=== PATIENT | female | born 1995 | race American Indian/Alaskan Native ===

== ENCOUNTER 2021-06-04 11:02 | Inpatient (IN) | payer OTHER ==
[2021-06-04] MEDS ORDERED: miSOPROStol 25 MCG TAB VG ONE ×2 (11:24→15:30)
[2021-06-04] MEDS ORDERED: ePHEDrine SULFATE 50 MG/1 ML INJ IV PRN (11:24)
[2021-06-04 13:42] LABS: Hematocrit 34.8 % (30.3-42.9); Hemoglobin 11.9 gm/dl (10.1-14.3); Mean Corpuscular HGB Conc 34 % (30-34); Mean Corpuscular Volume 87 fl (79-97); Platelet Count 280 K/mm3 (140-440); Red Blood Count 4.02 M/mm3 (3.65-5.03)
[2021-06-04 14:04] LABS: Alanine Aminotransferase 16 units/L (7-56); Uric Acid 3.3 mg/dL (3.5-7.6)
[2021-06-04] MEDS ORDERED: miSOPROStol 200 MCG TAB PR PRN (15:00)
[2021-06-04] MEDS ORDERED: TERBUTALINE 1 MG/1 ML INJ SUB-Q PRN (15:00)
[2021-06-04] MEDS ORDERED: OXYTOCIN 10 UNIT/1 ML INJ IM PRN (15:00)
[2021-06-04] MEDS ORDERED: OXYTOCIN DRIP 30 UNITS/500 ML BAG IV SCH (15:00)
[2021-06-04] MEDS: LACTATED RINGERS 1,000 ML IV SCH ×2 (15:10→22:41)
[2021-06-04] MEDS: miSOPROStol 25 MCG TAB PO PRN ×2 (15:14→21:55)
[2021-06-04] MEDS ORDERED: CARBOPROST TROMETHAMINE 250 MCG/1 ML INJ IM PRN (15:30)
[2021-06-04] MEDS ORDERED: METHYLERGONOVINE MALEATE 0.2 MG/ML VIAL IM PRN (15:30)
[2021-06-04] MEDS ORDERED: fentaNYL 100 MCG/2 ML INJ IV PRN (15:30)
[2021-06-04] MEDS ORDERED: ONDANSETRON 4 MG/2 ML INJ IV PRN (15:30)
[2021-06-04] MEDS ORDERED: LIDOCAINE (2%) 20 MG/1 ML VIAL 20 ML MDV INFILTRATI ONE (15:30)
[2021-06-04] MEDS ORDERED: ACETAMINOPHEN 325 MG TAB PO PRN (15:30)
[2021-06-04] MEDS ORDERED: LOPERAMIDE 2 MG CAP PO PRN (15:30)
[2021-06-04] MEDS ORDERED: BUTORPHANOL 2 MG/1 ML INJ IV PRN (15:30)
[2021-06-04] MEDS ORDERED: NALOXONE 0.4 MG/1 ML INJ IV PRN (15:30)
--- NOTE | 2021-06-04 20:03 | History and Physical Report ---
History of Present Illness Date of examination: 06/04/21 Date of admission: 06/04/21 11:04 Chief complaint: elevated blood pressure, sent from the office History of present illness: Pt is a 25 year old -Greek female primigravida SUMAN 06/16/21 at 38w2d who presents with BPs 140/100 in office today. She denies headache, blurry vision, RUQ pain or scotomata. She has had care at [facility] since 18 wks complicated by HSV-1 positive status. She is GBS negative. Past History Past Medical History: no pertinent history Past Surgical History: no surgical history Family/Genetic History: none Social history: no significant social history - Obstetrical History Expected Date of Delivery: 06/16/21 Actual Gestation: 38 Week(s) 2 Day(s) : 1 Medications and Allergies Allergies Allergy/AdvReac Type Severity Reaction Status Date / Time Penicillins Allergy Shortness Verified 06/04/21 14:03 of Breath Home Medications Medication Instructions Recorded Confirmed Last Taken Type No Known Home Medications [No 06/04/21 06/04/21 Unknown History Reported Home Medications] Active Meds: Active Medications Acetaminophen (Acetaminophen 325 Mg Tab) 650 mg PO Q4H PRN PRN Reason: Pain, Mild (1-3) Butorphanol Tartrate (Butorphanol 2 Mg/1 Ml Inj) 2 mg IV Q2H PRN PRN Reason: Pain , Severe (7-10) Carboprost Tromethamine (Carboprost Tromethamine 250 Mcg/1 Ml Inj) 250 mcg IM ONCE PRN PRN Reason: Uterine Bleeding Ephedrine Sulfate (Ephedrine Sulfate 50 Mg/1 Ml Inj) 10 mg IV Q2M PRN PRN Reason: Hypotension Fentanyl (Fentanyl 100 Mcg/2 Ml Inj) 100 mcg IV Q2H PRN PRN Reason: Pain,Severe (7-10) LABOR PAIN Oxytocin/Sodium Chloride (Pitocin/Ns 30 Unit/500ml) 30 units in 500 mls @ 2 mls/hr IV TITR CARMELO; Protocol Lactated Ringer's (Lactated Ringers) 1,000 mls @ 125 mls/hr IV DIRECT CARMELO Last Admin: 06/04/21 15:10 Dose: 125 mls/hr Documented by: Oxytocin/Sodium Chloride (Pitocin/Ns 30 Unit/500ml) 30 units in 500 mls @ 40 mls/hr IV TITR CARMELO; Protocol Loperamide HCl (Loperamide 2 Mg Cap) 2 mg PO ONCE PRN PRN Reason: give with Hemabate Methylergonovine Maleate (Methylergonovine Maleate 0.2 Mg/Ml Vial) 0.2 mg IM ONCE PRN PRN Reason: Uterine Bleeding Mineral Oil (Mineral Oil 30 Ml Oral Liqd) 30 ml PO QHS PRN PRN Reason: Constipation Misoprostol (Misoprostol 200 Mcg Tab) 800 mcg AR ONCE PRN PRN Reason: Uterine Bleeding Misoprostol (Misoprostol 25 Mcg Tab) 25 mcg PO Q4H PRN PRN Reason: Cervical Ripening Last Admin: 06/04/21 15:14 Dose: 25 mcg Documented by: Naloxone HCl (Naloxone 0.4 Mg/1 Ml Inj) 0.1 mg IV Q2MIN PRN PRN Reason: Res Rate </= 8 or 02 SAT < 92% Ondansetron HCl (Ondansetron 4 Mg/2 Ml Inj) 4 mg IV Q8H PRN PRN Reason: Nausea And Vomiting Oxytocin (Oxytocin 10 Unit/1 Ml Inj) 10 unit IM ONCE PRN PRN Reason: Uterine Bleeding Terbutaline Sulfate (Terbutaline 1 Mg/1 Ml Inj) 0.25 mg SUB-Q ONCE PRN PRN Reason: Hyperstimulation/Hypertonicity Review of Systems All systems: negative - Vital Signs Vital signs: Vital Signs Pulse BP 113 H 131/78 06/04/21 11:36 06/04/21 11:36 Temp Pulse Resp BP Pulse Ox 98.1 F 89 18 136/62 100 06/04/21 12:00 06/04/21 19:57 06/04/21 12:00 06/04/21 19:43 06/04/21 19:57 - Physical Exam Breasts: Positive: deferred Abdomen: Positive: soft (obese, gravid ) Uterus: Positive: enlarged (gravid) Extremities: Positive: edema (trace) - Obstetrical FHR: auscultation normal Uterine Contraction Monitor Mode: External Cervical Dilatation: 0 Uterine Contraction Pattern: Irregular Uterine Tone Measurement Phase: Resting Uterine Contraction Intensity: Mild Results Result Diagrams: 06/04/21 13:15 06/04/21 13:15 Abnormal lab results 06/04/21 Range/Units 13:15 Creatinine 0.5 L (0.6-1.2) mg/dL Uric Acid 3.3 L (3.5-7.6) mg/dL Lactate Dehydrogenase 213 H (91-180) units/L All other labs normal. Assessment and Plan A: IUP at 38w2d Gestational Hypertension Unfavorable Cervix Obesity HSV-1 positive GBS Negative P: Admit to labor and delivery PO Valtrex for HSV suppression PO Cytotec for cervical ripening PIH labs Closely monitor maternal and status
[2021-06-04] MEDS: valACYclovir 500 MG TAB PO SCH (22:39)
[2021-06-05 03:11] LABS: Bacteria,Urine 2+ /HPF (Negative); Bilirubin,Urine NEG (Negative); Blood,Urine NEG (Negative); Color,Urine Yellow (Yellow); Mucus,Urine 3+ /HPF; Urobilinogen,Urine < 2.0 mg/dL (<2.0)
[2021-06-05] MEDS ORDERED: LACTATED RINGERS 250 ML IV SOLN IV ONE (08:38)
[2021-06-05] MEDS ORDERED: NALOXONE 2 MG/2 ML INJ IV PRN (09:00)
[2021-06-05] MEDS ORDERED: ePHEDrine SULFATE 50 MG/1 ML INJ IV PRN (09:00)
[2021-06-05] MEDS ORDERED: ONDANSETRON 4 MG/2 ML INJ IV PRN ×2 (09:00→17:17)
[2021-06-05] MEDS ORDERED: fentaNYL-BUPIV 2 MCG/ML-0.125% 200 MCG/100 ML BAG EPIDURAL SCH (09:00)
[2021-06-05] MEDS ORDERED: NalbUPHINE 10 MG/1 ML INJ IV PRN (09:00)
[2021-06-05] MEDS ORDERED: diphenhydrAMINE 50 MG/ML VIAL IV PRN (09:00)
[2021-06-05] MEDS ORDERED: LACTATED RINGERS 250 ML IV ONE (09:30)
[2021-06-05] MEDS: LACTATED RINGERS 1,000 ML IV SCH (10:10)
--- NOTE | 2021-06-05 10:19 | Anesthesia Consultation ---
Anesthesia Consult and Med Hx Date of service: 06/05/21 - Airway Anesthetic Teeth Evaluation: Good ROM Head & Neck: Adequate Mental/Hyoid Distance: Adequate Mallampati Class: Class II Intubation Access Assessment: Probably Good - Pulmonary Exam CTA: Yes - Cardiac Exam Cardiac Exam: RRR - Pre-Operative Health Status ASA Pre-Surgery Classification: ASA2 Proposed Anesthetic Plan: Epidural - Pulmonary Hx Smoking: No Hx Asthma: No COPD: No Hx Pneumonia: No Hx Sleep Apnea: No - Cardiovascular System Hx Hypertension: Yes (PIH) Hx Heart Attack/AMI: No Hx Angina: No - Gastrointestinal Hx Gastroesophageal Reflux Disease: No - Endocrine Hx Renal Disease: No Hx End Stage Renal Disease: No Hx Liver Disease: No Hx Insulin Dependent Diabetes: No Hx Non-Insulin Dependent Diabetes: No - Other Systems Hx Obesity: Yes
--- NOTE | 2021-06-05 10:20 | Progress Note ---
Labor Epidural - Labor Epidural Start Time: 10:05 Stop Time: 10:15 Performed by:: BOBY CALVO Procedure: Patient is requesting epidural for labor and pain. H&P, labs were reviewed. Patient IDed, H&P reviewed, all questions and concerns were answered, and consent was signed. Timeout was performed at bedside. Patient in sitting position. Sterile prep and drape was performed. 3ml of 1% lidocaine skin wheal at L[3]- L [4]. 18-gauge Frankly epidural needle was advanced to loss of resistance with air technique 7cm. Negative CSF negative blood. Epidural catheter advanced to [12] centimeters. [negative] Aspiration [negative] test dose. Sterile dressing applied. Patient tolerated procedure.
[2021-06-05] MEDS: MINERAL OIL 30 ML ORAL LIQD PO PRN ×2 (13:45→14:18)
[2021-06-05] MEDS: OXYTOCIN DRIP 30 UNITS/500 ML BAG IV SCH ×2 (14:31→15:54)
--- NOTE | 2021-06-05 14:54 | Procedure Note ---
OB Delivery Note - Delivery Date of Delivery: 06/05/21 Surgeon: HADLEY DAMON Estimated blood loss: 200cc - Vaginal Delivery presentation: vertex Delivery position: OA Intrapartum events: none, mult. late decelerations, mult.variable deceleratio Delivery induction: none Delivery monitor: external FHT, external uterine Route of delivery: Delivery placenta: spontaneous Delivery cord: 3 umbilical vessels Delivery laceration: 1st degree, vaginal side wall Delivery repair: vicryl Anesthesia: epidural Delivery comments: Viable female delivered over intact perineum at 1423 with placenta to follow at 1431. Weight 5 pounds 13 ounces. Apgars were 8 and 9. Infant had spontaneous cry was placed on maternal abdomen. The cord was clamped and cut when done pulsating. Placenta was then delivered spontaneously and intact with three-vessel cord. A vaginal laceration was repaired with 3-0 Vicryl. There was excellent hemostasis. Patient tolerated procedure well. - Infant A at 1 minute: 8 at 5 minutes: 9 Infant Gender: Female (2636g/5'13")
[2021-06-05] MEDS: valACYclovir 500 MG TAB PO SCH (15:39)
[2021-06-05] MEDS ORDERED: PROMETHAZINE 25 MG RECT SUPP PR PRN (17:17)
[2021-06-05] MEDS ORDERED: WITCH HAZEL/ GLYCERIN PAD TP PRN (17:17)
[2021-06-05] MEDS ORDERED: diphenhydrAMINE 25 MG CAP PO PRN (17:17)
[2021-06-05] MEDS ORDERED: HYDROcodone/ACETAMINOPHEN 5-325 MG TAB PO PRN (17:17)
[2021-06-05] MEDS ORDERED: PROMETHAZINE 25 MG TAB PO PRN (17:17)
[2021-06-05] MEDS ORDERED: LANOLIN/ZINC/DIMETHICONE (LANSINOH) 7 GM TP PRN (17:17)
[2021-06-05] MEDS ORDERED: MAGNESIUM HYDROXIDE (MOM) ORAL LIQD UDC PO PRN (17:17)
[2021-06-05] MEDS: IBUPROFEN 600 MG TAB PO SCH (18:33)
[2021-06-06 04:44] LABS: Hematocrit 29.5 % (30.3-42.9); Hemoglobin 9.8 gm/dl (10.1-14.3)
[2021-06-06] MEDS: DOCUSATE SODIUM 100 MG CAP PO SCH ×2 (04:45→09:34)
[2021-06-06] MEDS: IBUPROFEN 600 MG TAB PO SCH ×3 (05:26→11:30)
--- NOTE | 2021-06-06 08:40 | Discharge Summary ---
Providers - Providers Date of Admission: 06/04/21 11:04 Date of discharge: 06/07/21 Attending physician: JOLLY AVILA Primary care physician: [facility] Hospitalization Reason for admission: induction of labor Delivery: Episiotomy: none Laceration: 1st degree (healing as expected) Other procedures: none complications: none Discharge diagnosis: IUP at term delivered baby: female Hospital course: Pt is a 25 year old -Micron[place] female primigravida SUMNA 06/16/21 at 38w2d who presents with BPs 140/100 in office today. She denies headache, blurry vision, RUQ pain or scotomata. She has had care at [facility] since 18 wks complicated by HSV-1 positive status. She is GBS negative. Condition at discharge: Good Disposition: DC-01 TO HOME OR SELFCARE - Discharge Diagnoses (1) Status post normal vaginal delivery Status: Acute (2) Anemia Status: Acute Qualifiers: Anemia type: other cause Other causes of anemia: acute posthemorrhagic Qualified Code(s): D62 - Acute posthemorrhagic anemia Comment: Ferrous sulfate 325 mg po BID Increase iron rich foods into diet Plan - Discharge Medications Prescriptions: Ferrous Sulfate [Feosol 325 MG tab] 325 mg PO BID 30 Days #60 tablet Ibuprofen [Motrin 600 MG tab] 600 mg PO Q8H 7 Days #21 tablet - Provider Discharge Summary Activity: routine, no sex for 6 weeks, no heavy lifting 4 weeks, no strenuous exercise Diet: other (Iron rich foods) Instructions: routine Additional instructions: [] Smoking cessation referral if applicable(refer to patient education folder for contact #) [] Refer to [facility] Booklet Call your doctor immediately for: * Fever > 100.5 * Heavy vaginal bleeding ( >1 pad per hour) * Severe persistent headache * Shortness of breath * Reddened, hot, painful area to leg or breast * Drainage or odor from incision. * Keep incision clean and dry at all times and follow doctor's instructions regarding bathing/showering - Follow up plan Follow up: PRIMARY CARE, [Primary Care Provider] - 6 Weeks
[2021-06-06] MEDS ORDERED: PRENATAL VIT27-FE FUMARATE-FOLIC ACID VIT TAB PO SCH (10:00)
[2021-06-06] MEDS ORDERED: FERROUS SULFATE 325 MG TAB PO SCH (10:00)
[2021-06-06 16:09] VITALS: BP 146/87
--- NOTE | 2021-06-06 16:33 | Post Anesthesia Evaluation ---
- Post Anesthesia Evaluation Patient Participated: Yes Airway Patent: Yes Stable Respiratory Function: Yes Nausea/Vomiting: No Temp > 96.8F: Yes Pain Manageable: Yes Adequeate Hydration: Yes Anesthesia Complications: No Block Receding Appropriately: Yes
== END 2021-06-06 18:33 | disposition home or self-care (01) | DRG 774 ==
LOC: TRG 11:02 → LD 11:04 → OB 06-05 17:14
PROVIDERS: ADMIT Obstetrics & Gynecology; ATTEND Obstetrics & Gynecology
PROC: 10E0XZZ Delivery of Products of Conception, External Approach (ICD-10-PCS; principal; 2021-06-05)
PROC: 0HQ9XZZ Repair Perineum Skin, External Approach (ICD-10-PCS; 2021-06-05)
PROC: 3E0R3BZ Introduction of Anesthetic Agent into Spinal Canal, Percutaneous Approach (ICD-10-PCS; 2021-06-05)
PROC: 00HU33Z Insertion of Infusion Device into Spinal Canal, Percutaneous Approach (ICD-10-PCS; 2021-06-05)
DX: O76 Abnormality in fetal heart rate and rhythm complicating labor and delivery (principal); O98.52 Other viral diseases complicating childbirth; Z20.822 Contact with and (suspected) exposure to COVID-19; O99.214 Obesity complicating childbirth; O13.4 Gestational [pregnancy-induced] hypertension without significant proteinuria, complicating childbirth; E66.9 Obesity, unspecified; B00.9 Herpesviral infection, unspecified; O99.02 Anemia complicating childbirth; O70.0 First degree perineal laceration during delivery; D62 Acute posthemorrhagic anemia; Z3A.38 38 weeks gestation of pregnancy; Z37.0 Single live birth; Z88.0 Allergy status to penicillin
CPT/HCPCS: 36415; 81001; 82565; 83615; 84450; 84460; 84550; 85014; 85018; 85027; 86592; 86850; 86900; 86901; 87086; G0378; J0595; J2590; J3010; J7120; U0003